=== PATIENT | male | born 1995 | race Caucasian/White ===

== ENCOUNTER 2016-04-23 23:35 | Emergency (ER) | payer MEDICAID, OTHER ==
[~2016-04-23] VITALS: Ht 177.8 cm; Wt 92.9 kg
[2016-04-23 23:38] VITALS: Ht 177.8 cm; Wt 92.9 kg
[2016-04-24] MEDS ORDERED: AMOX1TAB10 PO (02:21)
[2016-04-24] MEDS ORDERED: IBUP-1542 PO (02:21)
--- NOTE | 2016-04-24 02:25 | ERD ---
ER Documentation Chief Complaint Date/Time DATE: 04/24/16 TIME: 02:23 Chief Complaint Pt reports breaking up fight between his dogs and was bitten on L hand HPI 20-year-old female presents here in emergency department for complaints of a left hand laceration wound after trying to break off both dogs, accidentally got bit. Patient is complaining of pain on affected area, throbbing pain, 4/10 scale, is worse upon touching the area. She is bleeding, controlled immediately afterwards. Patient denies any numbness or tingling. Patient denies any joint involvement. Patient denies any limitation movement of the joint. ROS All systems reviewed and are negative except as per history of present illness. Medications Home Meds Active Scripts Ibuprofen* (Motrin*) 600 Mg Tab, 600 MG PO Q6H Y for PAIN AND OR ELEVATED TEMP, #30 TAB Prov:LINDA CALLE NP 04/24/16 Amoxicillin/Potassium Clav (Amox-Clav 875-125 mg Tablet) 875-125 mg Tab, 1 TAB PO BID for 7 Days, #14 TAB Prov:LINDA CALLE MATH COACH 04/24/16 Allergies Allergies: Coded Allergies: No Known Allergy (Unverified , 04/24/16) PMhx/Soc Last tetanus immunization was more than 5 years Medical and Surgical Hx: pt denies Medical Hx, pt denies Surgical Hx History of Surgery: No Anesthesia Reaction: No Hx Neurological Disorder: No Hx Respiratory Disorders: No Hx Cardiac Disorders: No Hx Psychiatric Problems: No Hx Miscellaneous Medical Probl: No Hx Alcohol Use: No Hx Substance Use: Yes (THC) Hx Tobacco Use: Yes (THC only) Smoking Status: Current some day smoker FmHx Family History: No coronary disease, No diabetes, No other Physical Exam Vitals Vital Signs Date Time Temp Pulse Resp B/P Pulse Ox O2 Delivery O2 Flow Rate FiO2 04/23/16 23:38 98.7 73 16 130/73 100 Physical Exam GENERAL: The patient is well developed and appropriate for usual state of health, in no apparent distress. CHEST: Clear to auscultation bilaterally. There are no rales, wheezes or rhonchi. HEART: Regular rate and rhythm. No murmurs, clicks, rubs or gallops. No S3 or S4. ABDOMEN: Soft, nontender and nondistended. Good bowel sounds. No rebound or guarding. No gross peritonitis. No gross organomegaly or masses. No Greco sign or McBurney point tenderness. BACK: No midline or flank tenderness. EXTREMITIES: Equal pulses bilaterally. There is no peripheral clubbing, cyanosis or edema. No focal swelling or erythema. Full range of motion. Grossly neurovascularly intact. NEURO: Alert and oriented. Cranial nerves 2-12 intact. Motor strength in all 4 extremities with 5/5 strength. Sensation grossly intact. Normal speech and gait. SKIN: 1 centimeter superficial laceration wound noted in the left hand, no tendon involvement noted. There is no apparent rash or petechia. The skin is warm and dry. HEMATOLOGIC AND LYMPHATIC: There is no evidence of excessive bruising or lymphedema. No gross cervical, axillary, or inguinal lymphadenopathy. Results 24 hrs Current Medications Medications (Trade) Dose Ordered Sig/Lisseth Route PRN Reason Start Time Stop Time Status Last Admin Dose Admin Diphtheria/ Tetanus/Acell Pertussis (Adacel) 0.5 ml ONCE ONCE IM* 04/24/16 02:30 04/24/16 02:31 Tdap was given to prevent tetanus. Patient tolerated medication well. Procedures/MDM Procedure Note: After obtaining informed consent, the wound was irrigated with 250 ml of normal saline and cleaned with diluted betadine. Using aseptic technique, the wound was approximated using a one Steri-Strip. After the procedure, the wound was well approximated. Patient tolerated procedure well. Medical decision making: Patient symptoms suspect is consistent with a dog bite wound, this was approximated using one Steri-Strip to that if ever it gets infected, drainage can escape, patient's tetanus vaccination was updated, patient was given Augmentin to prevent infection of affected area. No symptoms of any joint involvement. No symptoms of sepsis at this time. No symptoms of any neurovascular compromise. No tendon involvement noted. Patient was advised of wound checked in 2 days. Patient was advised to take medications. Follow-up with primary care doctor in 2 days, return to emergency department for any worsening symptoms. Departure Diagnosis: Primary Impression: Dog bite Encounter type: initial encounter Qualified Code: W54.0XXA - Dog bite, initial encounter Condition: Stable Patient Instructions: Dog Bite Additional Instructions: wound check LINDA CALLE NP Apr 24, 2016 02:25
[2016-04-24] MEDS ORDERED: DIPHTH/TET/ACEL PERTUSS (ADULT) 0.5 ML VIAL IM* ONE (02:30)
== END 2016-04-24 02:45 | disposition home or self-care (01) ==
LOC: FTE 23:35
DX: S61.412A Laceration without foreign body of left hand, initial encounter (principal); S61.452A Open bite of left hand, initial encounter; F17.210 Nicotine dependence, cigarettes, uncomplicated; W54.0XXA Bitten by dog, initial encounter; Y92.9 Unspecified place or not applicable; Z23 Encounter for immunization
CPT/HCPCS: 90471; 90715; Z7502